=== PATIENT | female | born 1975 | race American Indian/Alaskan Native ===

== ENCOUNTER 2019-01-13 00:32 | Outpatient (CLI) | payer OTHER, MEDICAID ==
[2019-01-13] MEDS ORDERED: LACTATED RINGERS 1,000 ML IV ONE (00:53)
[2019-01-13 01:14] LABS: Bilirubin,Urine SM (Negative); Blood,Urine NEG (Negative); Color,Urine Yellow (Yellow); Mucus,Urine 3+ /HPF
[2019-01-13 02:00] LABS: Ictotest,Urine Negative (Negative)
[2019-01-13 02:13] LABS: Basophils # (Auto) 0.1 K/mm3 (0.0-0.1); Basophils % (Auto) 0.5 % (0.0-1.8); Eosinophils # (Auto) 0.2 K/mm3 (0.0-0.4); Eosinophils % (Auto) 2.1 % (0.0-4.3); Hematocrit 20.3 % (30.3-42.9); Hemoglobin 6.3 gm/dl (10.1-14.3); Lymphocytes # (Auto) 2.8 K/mm3 (1.2-5.4); Lymphocytes % (Auto) 24.4 % (13.4-35.0); Mean Corpuscular HGB Conc 31 % (30-34); Monocytes % (Auto) 9.1 % (0.0-7.3); Platelet Count 386 K/mm3 (140-440); Red Blood Count 3.12 M/mm3 (3.65-5.03); Red Cell Distribution Width 17.5 % (13.2-15.2)
[2019-01-13 02:34] LABS: Mean Corpuscular Volume 65 fl (79-97)
[2019-01-13] MEDS ORDERED: NACL 0.9% 500 ML 500 ML IV ONE (02:56)
[2019-01-13] MEDS ORDERED: BENADRYL PO PRN (02:59)
[2019-01-13] MEDS ORDERED: TYLENOL PO PRN (02:59)
[2019-01-13] MEDS ORDERED: LACTATED RINGERS 1,000 ML IV SCH (04:00)
[2019-01-13 13:56] LABS: Basophils % (Auto) 0.4 % (0.0-1.8); Eosinophils # (Auto) 0.1 K/mm3 (0.0-0.4); Eosinophils % (Auto) 1.2 % (0.0-4.3); Hematocrit 23.2 % (30.3-42.9); Hemoglobin 7.5 gm/dl (10.1-14.3); Lymphocytes # (Auto) 1.7 K/mm3 (1.2-5.4); Lymphocytes % (Auto) 17.2 % (13.4-35.0); Mean Corpuscular HGB Conc 32 % (30-34); Monocytes # (Auto) 0.8 K/mm3 (0.0-0.8); Monocytes % (Auto) 8.4 % (0.0-7.3); Platelet Count 346 K/mm3 (140-440); Red Blood Count 3.33 M/mm3 (3.65-5.03)
[2019-01-13 13:57] LABS: Mean Corpuscular Volume 70 fl (79-97); Red Cell Distribution Width 21.6 % (13.2-15.2)
--- NOTE | 2019-01-13 15:59 | History and Physical Report ---
History of Present Illness Date of examination: 01/13/19 Date of admission: 01/13/19 Chief complaint: SIUP at 29 weeks and 1 day gestation with severe fatigue and dizziness. History of present illness: Patient is a 43 year old , LMP 06/29/18, EDC 03/30/19 at 29 weeks and 1 day gestation who presented to triage complaining of having severe fatigue and dizziness on and off for a few days. These symptoms worsened yesterday. She denied any headache, syncope, chest pain, contraction, bleeding or fluid leakage. She reports good movement. She denies any history of hemoglobinopathy or bleeding during the . Her Hb/Hct at the beginning of care was 9.5/30.5 in 08/2018 which dropped to 6.7/21.6 this month. She says that she has been eating well and denies any hyperemesis. She has been seeing [facility] for advanced maternal age. Her last sonog elisa was normal on 12/15/18. She was given IV hydration and CBC was done. Hb/Hct is 6.3/20. Past History Past Medical History: other (anemia) Past Surgical History: section [employer] History: abnormal PAP smear Family/Genetic History: none Social history: no significant social history - Obstetrical History Expected Date of Delivery: 03/30/19 Actual Gestation: 29 Week(s) 1 Day(s) : 3 Para: 1 Spontaneous Abortions: 1 Number of Living Children: 1 Medications and Allergies Allergies Allergy/AdvReac Type Severity Reaction Status Date / Time No Known Allergies Allergy Verified 01/13/19 00:53 Home Medications Medication Instructions Recorded Confirmed Last Taken Type Ferrous Sulfate [Iron 325 MG] 1 tab PO DAILY 01/13/19 01/13/19 01/08/19 History Pnv No.153/FA/Om3/Dha/Epa/Fish 1 tab PO DAILY 01/13/19 01/13/19 01/12/19 History [[facility] Gummies] Active Meds: Active Medications Acetaminophen (Tylenol) 650 mg PO Q4H PRN PRN Reason: Pain MILD(1-3)/Fever >100.5/GREGG Last Admin: 01/13/19 05:14 Dose: 650 mg Documented by: Diphenhydramine HCl (Benadryl) 25 mg PO Q6H PRN PRN Reason: Itching Last Admin: 01/13/19 05:14 Dose: 25 mg Documented by: Lactated Ringer's (Lactated Ringers) 1,000 mls @ 125 mls/hr IV DIRECT MICHAEL - Vital Signs Vital signs: Vital Signs Pulse BP Pulse Ox 84 92/61 98 01/13/19 01:09 01/13/19 01:09 01/13/19 01:09 Temp Pulse Resp BP Pulse Ox 98.1 F 86 18 91/55 99 01/13/19 10:30 01/13/19 15:52 01/13/19 10:30 01/13/19 15:52 01/13/19 15:52 - Physical Exam Cardiovascular: Normal S1, Normal S2 Lungs: Positive: Clear to auscultation Vulva: both: normal Adnexa: both: normal Deep Tendon Reflex Grade: Normal +2 - Obstetrical FHR: category 1 Uterine Contraction Monitor Mode: External Cervical Dilatation: 0 Cervical Effacement Percentage: 0 station: -3 Uterine Contraction Pattern: Absent Results Result Diagrams: 01/13/19 13:25 Abnormal lab results 01/13/19 01/13/19 01/13/19 Range/Units 00:55 01:52 01:52 WBC 11.4 H (4.5-11.0) K/mm3 RBC 3.12 L (3.65-5.03) M/mm3 Hgb 6.3 L (10.1-14.3) gm/dl Hct 20.3 L (30.3-42.9) % MCV 65 L (79-97) fl MCH 20 L (28-32) pg RDW 17.5 H (13.2-15.2) % [place] % (Auto) 9.1 H (0.0-7.3) % [place] # 1.0 H (0.0-0.8) K/mm3 Seg Neutrophils % (40.0-70.0) % Ur Specific [place] 1.032 H (1.003-1.030) Crossmatch See Detail 01/13/19 Range/Units 13:25 WBC (4.5-11.0) K/mm3 RBC 3.33 L (3.65-5.03) M/mm3 Hgb 7.5 L (10.1-14.3) gm/dl Hct 23.2 L (30.3-42.9) % MCV 70 L (79-97) fl MCH 22 L (28-32) pg RDW 21.6 H (13.2-15.2) % [place] % (Auto) 8.4 H (0.0-7.3) % [place] # (0.0-0.8) K/mm3 Seg Neutrophils % 72.8 H (40.0-70.0) % Ur Specific [place] (1.003-1.030) Crossmatch All other labs normal. Assessment and Plan - Patient Problems (1) 29 weeks gestation of Current Visit: Yes Status: Acute (2) Symptomatic anemia Current Visit: Yes Status: Acute Plan to address problem: 2 units of PRBC have been given. Post-transfusion Hb/Hct is 7.5/23. Patient is feeling better. Will transfuse one more unit to bring her Hb above 8. (3) Advanced maternal age (AMA) in Current Visit: Yes Status: Acute (4) Previous section Current Visit: Yes Status: Acute
[2019-01-13] MEDS ORDERED: NACL 0.9% 500 ML 500 ML IV NR (16:04)
[2019-01-13 21:16] VITALS: BP 100/61
[2019-01-13 23:12] LABS: Basophils # (Auto) 0.1 K/mm3 (0.0-0.1); Basophils % (Auto) 0.6 % (0.0-1.8); Eosinophils # (Auto) 0.2 K/mm3 (0.0-0.4); Eosinophils % (Auto) 1.9 % (0.0-4.3); Hematocrit 26.4 % (30.3-42.9); Hemoglobin 8.5 gm/dl (10.1-14.3); Lymphocytes % (Auto) 18.5 % (13.4-35.0); Mean Corpuscular HGB Conc 32 % (30-34); Mean Corpuscular Volume 71 fl (79-97); Monocytes # (Auto) 1.2 K/mm3 (0.0-0.8); Monocytes % (Auto) 11.1 % (0.0-7.3); Platelet Count 333 K/mm3 (140-440); Red Blood Count 3.72 M/mm3 (3.65-5.03)
[2019-01-13 23:33] LABS: Red Cell Distribution Width 22.5 % (13.2-15.2)
--- NOTE | 2019-01-14 01:42 | Discharge Summary ---
Providers - Providers Date of Admission: 01/13/19 Date of discharge: 01/14/19 Attending physician: GENE PINO MD Primary care physician: GENE PINO MD Hospitalization Reason for admission: IUP - , observation, other (Symptomatic anemia) Laceration: none Other procedures: none complications: none Discharge diagnosis: other (IUP @ 29 2/7 weeks; Symptomatic anemia - resolved) Hospital course: Patient is a 43 year old , LMP 06/29/18, EDC 03/30/19 at 29 weeks and 1 day gestation who presented to triage complaining of having severe fatigue and dizziness on and off for a few days. These symptoms worsened yesterday. She denied any headache, syncope, chest pain, contraction, bleeding or fluid leakage. She reported good movement. She denied any history of hemoglobinopathy or bleeding during the . Her Hb/Hct at the beginning of care was 9.5/30.5 in 08/2018 which dropped to 6.7/21.6 this month. She says that she had been eating well and denied any hyperemesis. She had been seeing [facility] for advanced maternal age. Her last sonogram was normal on 12/15/18. She was given IV hydration and transfused 3 units of PRBC's increasing her Hb/Hct from 6.3/20 to 8.5.26.4 She is currently feeling much better and wants to go home. She was therefore discharged to home in stable condition. Condition at discharge: Good Disposition: DC-01 TO HOME OR SELFCARE Plan - Provider Discharge Summary Activity: routine, no sex for 6 weeks, no heavy lifting 4 weeks, no strenuous exercise Diet: routine Instructions: routine Additional instructions: [] Smoking cessation referral if applicable(refer to patient education folder for contact #) [] Refer to [facility] Booklet Call your doctor immediately for: * Fever > 100.5 * Heavy vaginal bleeding ( >1 pad per hour) * Severe persistent headache * Shortness of breath * Reddened, hot, painful area to leg or breast * Drainage or odor from incision. * Keep incision clean and dry at all times and follow doctor's instructions rega rding bathing/showering - Follow up plan Follow up: GENE PINO MD [Primary Care Provider] - 7 Days Forms: C Discharge Summary, Work/School Release Form
== END 2019-01-14 01:22 | disposition home or self-care (01) ==
LOC: TRG 00:32 → LD 03:41 → TRG 01-14 01:22
PROVIDERS: ATTEND Obstetrics & Gynecology
DX: O99.013 Anemia complicating pregnancy, third trimester (principal); D64.9 Anemia, unspecified; O26.893 Other specified pregnancy related conditions, third trimester; R06.02 Shortness of breath; O09.523 Supervision of elderly multigravida, third trimester; Z3A.29 29 weeks gestation of pregnancy
CPT/HCPCS: 36415; 36430; 81001; 85025; 86850; 86900; 86901; 86920; 96360; J7040; J7120; P9016